=== PATIENT | female | born 1950 | race Asian ===

== ENCOUNTER 2018-09-26 20:08 | Emergency (ER) | payer SELFPAY ==
[2018-09-26] MEDS ORDERED: Heparin 25,000 units/D5W 500 ML ONE (20:31)
[2018-09-26] MEDS ORDERED: Heparin 5,000 UNITS/ML VIAL ONE (20:31)
[2018-09-26] MEDS ORDERED: Aspirin 325 MG TAB ONE (20:31)
[2018-09-26 20:45] LABS: #Basophils 0.1 thou/uL (0.0-0.2); #Monocytes 0.5 thou/uL (0.11-0.59); #Neutrophils 12.5 thou/uL (1.40-6.50); %Basophils 0.6 % (0.0-1.0); %Lymphocytes 7.2 % (21.0-51.0); %Monocytes 3.3 % (0.0-10.0); %Neutrophils 88.9 % (42.0-75.0); Hemoglobin 12.5 g/dL (12.0-16.0); Mean Corpuscular HGB CONC 31.5 g/dL (32.0-36.0); Mean Corpuscular Volume 88.9 fL (78.0-98.0); Mean Platelet Volume 8.2 fL (7.4-10.4); Platelet Count 248 thou/uL (130-400); RBC Distribution Width 11.9 % (11.5-14.5); Red Blood Cell (RBC) Count 4.47 mill/uL (4.20-5.40); White Blood Cell (WBC) Count 14.1 thou/uL (4.8-10.8)
--- NOTE | 2018-09-26 20:49 | RAD ---
RADIOGRAPH CHEST 1 VIEW: Date: 09/26/18 HISTORY: 67-year-old female with ST elevation myocardial infarction. COMPARISON: None. FINDINGS: There is cardiomegaly. There is pulmonary venous engorgement. Prominent interstitial markings are que stionable for mild pulmonary interstitial edema. There is a questionable small left pleural effusion. No consolidation or pneumothorax. IMPRESSION: Evidence for congestive heart failure. JN [][id number] POS: [facility]
[2018-09-26 20:52] LABS: PTT 24.5 SEC (22.9-36.1); Prothrombin Time 12.8 SEC (12.0-14.7)
[2018-09-26 21:03] LABS: ALT (SGPT) 19 U/L (8-55); AST (SGOT) 49 U/L (5-34); Albumin 3.8 g/dL (3.4-4.8); Alkaline Phosphatase 79 U/L (40-150); Anion Gap 27 mmol/L (10-20); BUN (Urea Nitrogen) 27 mg/dL (9.8-20.1); Bilirubin, Total 0.4 mg/dL (0.2-1.2); Calc. Creatinine Clearance 0 mL/min (70-130); Calcium 9.8 mg/dL (7.8-10.44); Carbon Dioxide 17 mmol/L (23-31); Chloride 91 mmol/L (98-107); Estimated GFR-MDRD 40; Globulin 3.9 g/dL (2.4-3.5); Glucose 391 mg/dL (80-115); Potassium 4.2 mmol/L (3.5-5.1); Protein, Total 7.7 g/dL (6.0-8.3); Sodium 131 mmol/L (136-145)
[2018-09-26 21:28] LABS: CKMB 17.4 ng/mL (0-6.6)
== END 2018-09-26 20:53 | disposition short-term general hospital (02) ==
LOC: MADERS 20:08
DX: I21.19 ST elevation (STEMI) myocardial infarction involving other coronary artery of inferior wall (principal); I21.29 ST elevation (STEMI) myocardial infarction involving other sites; E11.65 Type 2 diabetes mellitus with hyperglycemia; E78.5 Hyperlipidemia, unspecified; Z79.84 Long term (current) use of oral hypoglycemic drugs; Z79.899 Other long term (current) drug therapy
CPT/HCPCS: 36415; 36416; 71045; 80053; 82553; 84484; 85025; 85610; 85730; 93005; 96374; J1644

== ENCOUNTER 2019-07-25 19:08 | Emergency (ER) | payer MEDICAID, SELFPAY ==
[2019-07-25] MEDS ORDERED: Nitroglycerin 2% Ointment 1 INCH/1 GM Packet ONE (19:46)
[2019-07-25] MEDS ORDERED: Aspirin Chewable 81 MG TAB ONE (19:46)
[2019-07-25 19:54] LABS: #Basophils 0.1 thou/uL (0.0-0.2); #Eosinphils 0.1 thou/uL (0.0-0.7); #Lymphocytes 1.2 thou/uL (1.20-3.40); #Monocytes 0.5 thou/uL (0.11-0.59); #Neutrophils 9.2 thou/uL (1.40-6.50); %Basophils 0.7 % (0.0-1.0); %Eosinophils 0.5 % (0.0-10.0); %Lymphocytes 10.7 % (21.0-51.0); %Monocytes 4.8 % (0.0-10.0); %Neutrophils 83.4 % (42.0-75.0); Hemoglobin 13.3 g/dL (12.0-16.0); Mean Corpuscular HGB CONC 30.1 g/dL (32.0-36.0); Mean Corpuscular Hemoglobin 27.5 pg (27.0-31.0); Mean Corpuscular Volume 91.3 fL (78.0-98.0); Mean Platelet Volume 7.7 fL (7.4-10.4); Platelet Count 249 thou/uL (130-400); RBC Distribution Width 12.8 % (11.5-14.5); Red Blood Cell (RBC) Count 4.85 mill/uL (4.20-5.40)
[2019-07-25 20:08] LABS: ALT (SGPT) 16 U/L (8-55); AST (SGOT) 16 U/L (5-34); Albumin 3.9 g/dL (3.4-4.8); Alkaline Phosphatase 65 U/L (40-110); Anion Gap 17 mmol/L (10-20); BUN (Urea Nitrogen) 18 mg/dL (9.8-20.1); Bilirubin, Total 0.4 mg/dL (0.2-1.2); Calc. Creatinine Clearance 0 mL/min (70-130); Calcium 9.3 mg/dL (7.8-10.44); Carbon Dioxide 22 mmol/L (23-31); Chloride 103 mmol/L (98-107); Estimated GFR-MDRD 56; Globulin 2.9 g/dL (2.4-3.5); Glucose 230 mg/dL (80-115); Magnesium 1.7 mg/dL (1.6-2.6); Potassium 4.2 mmol/L (3.5-5.1); Protein, Total 6.8 g/dL (6.0-8.3); Sodium 138 mmol/L (136-145)
--- NOTE | 2019-07-25 20:13 | RAD ---
PORTABLE CHEST: 07/25/19 HISTORY: Chest pain. COMPARISON: 10/01/18 exam. Heart size is enlarged. Pulmonary vessels appears mildly engorged. No focal infiltrative process. IMPRESSION: Cardiomegaly with pulmonary vascular engorgement. POS: [facility]
[2019-07-25] MEDS ORDERED: Furosemide 40 MG/4 ML VIAL ONE (21:21)
== END 2019-07-25 22:29 | disposition short-term general hospital (02) ==
LOC: MADERS 19:08
DX: I50.9 Heart failure, unspecified (principal); I25.2 Old myocardial infarction; E11.9 Type 2 diabetes mellitus without complications; E78.5 Hyperlipidemia, unspecified; E78.00 Pure hypercholesterolemia, unspecified; Z79.4 Long term (current) use of insulin; Z79.82 Long term (current) use of aspirin; Z79.899 Other long term (current) drug therapy; I25.10 Atherosclerotic heart disease of native coronary artery without angina pectoris
CPT/HCPCS: 71045; 80053; 83735; 83880; 84484; 85025; 93005; 96374; J1940

== ENCOUNTER 2021-06-19 19:35 | Emergency (ER) | payer MEDICAID, BC ==
[2021-06-19] MEDS ORDERED: Morphine 4 MG/ML VIAL ONE (20:19)
[2021-06-19] MEDS ORDERED: Aspirin Chewable 81 MG TAB ONE (20:20)
[2021-06-19] MEDS ORDERED: diphenhydrAMINE 50 MG/ML VIAL ONE (20:20)
[2021-06-19] MEDS ORDERED: Ondansetron PF 4 MG/2 ML Vial ONE (20:20)
[2021-06-19] MEDS ORDERED: Heparin 5,000 UNITS/ML VIAL ONE (20:33)
[2021-06-19] MEDS ORDERED: Heparin 25,000 units/D5W 500 ML ONE (20:33)
[2021-06-19 20:39] LABS: #Lymphocytes 1.1 thou/uL (1.20-3.40); #Monocytes 0.4 thou/uL (0.11-0.59); #Neutrophils 9.4 thou/uL (1.40-6.50); %Basophils 0.4 % (0.0-1.0); %Eosinophils 0.3 % (0.0-10.0); %Lymphocytes 10.3 % (21.0-51.0); %Monocytes 3.5 % (0.0-10.0); %Neutrophils 85.4 % (42.0-75.0); Hemoglobin 14.8 g/dL (12.0-16.0); Mean Corpuscular HGB CONC 31.8 g/dL (32.0-36.0); Mean Corpuscular Hemoglobin 27.8 pg (27.0-31.0); Mean Corpuscular Volume 87.4 fL (78.0-98.0); Mean Platelet Volume 8.3 fL (7.4-10.4); Platelet Count 239 thou/uL (130-400); RBC Distribution Width 12.1 % (11.5-14.5); Red Blood Cell (RBC) Count 5.33 mill/uL (4.20-5.40)
[2021-06-19 20:48] LABS: INR-International Normal Ratio 0.9; PTT 23.6 sec (22.9-36.1); Prothrombin Time 12.5 sec (12.0-14.7)
[2021-06-19 20:59] LABS: ALT (SGPT) 101 U/L (8-55); AST (SGOT) 178 U/L (5-34); Albumin 4.4 g/dL (3.4-4.8); Alkaline Phosphatase 118 U/L (40-110); Anion Gap 15 mmol/L (10-20); BUN (Urea Nitrogen) 30 mg/dL (9.8-20.1); Bilirubin, Total 1.6 mg/dL (0.2-1.2); CK (CPK) 104 U/L (29-168); Calc. Creatinine Clearance 0 mL/min (70-130); Calcium 10.2 mg/dL (7.8-10.44); Carbon Dioxide 30 mmol/L (23-31); Chloride 100 mmol/L (98-107); Globulin 3.8 g/dL (2.4-3.5); Glucose 353 mg/dL (83-110); Lipase 42 U/L (8-78); Potassium 3.9 mmol/L (3.5-5.1); Protein, Total 8.2 g/dL (5.8-8.1); Sodium 141 mmol/L (136-145)
== END 2021-06-19 21:13 | disposition short-term general hospital (02) ==
LOC: MADERS 19:35
DX: I24.9 Acute ischemic heart disease, unspecified (principal); R00.1 Bradycardia, unspecified; E11.9 Type 2 diabetes mellitus without complications; E78.5 Hyperlipidemia, unspecified; E78.00 Pure hypercholesterolemia, unspecified; I25.2 Old myocardial infarction; Z79.4 Long term (current) use of insulin; Z79.82 Long term (current) use of aspirin; Z79.899 Other long term (current) drug therapy
CPT/HCPCS: 71045; 80053; 82550; 83690; 84484; 85025; 85610; 85730; 93005; 96365; 96375; 96376; J1200; J1644; J2270; J2405

== ENCOUNTER 2021-07-01 11:20 | Inpatient (IN) | payer BC, MEDICAID ==
[2021-07-01 12:47] LABS: Bilirubin Negative (Negative); Blood, Urine Negative (Negative); Clarity Clear (Clear); Glucose, Urine (Dipstick) 500 mg/dL (Negative); Ketone, Urine Negative (Negative); Leukocyte Negative (Negative); Nitrite Negative (Negative); Protein, Urine (Dipstick) Negative (Neg-Trace); Specific Gravity, Urine 1.015 (1.005-1.030); Urobilinogen 0.2 mg/dL (Less than 2)
[2021-07-01 13:59] LABS: #Basophils 0.1 thou/uL (0.0-0.2); #Eosinphils 0.2 thou/uL (0.0-0.7); #Lymphocytes 2.3 thou/uL (1.20-3.40); #Monocytes 0.4 thou/uL (0.11-0.59); #Neutrophils 2.8 thou/uL (1.40-6.50); %Basophils 0.9 % (0.0-1.0); %Eosinophils 2.9 % (0.0-10.0); %Lymphocytes 39.9 % (21.0-51.0); %Monocytes 7.6 % (0.0-10.0); %Neutrophils 48.6 % (42.0-75.0); Hemoglobin 13.8 g/dL (12.0-16.0); Mean Corpuscular HGB CONC 30.9 g/dL (32.0-36.0); Mean Corpuscular Hemoglobin 27.8 pg (27.0-31.0); Mean Platelet Volume 7.2 fL (7.4-10.4); Platelet Count 366 thou/uL (130-400); RBC Distribution Width 13.4 % (11.5-14.5); Red Blood Cell (RBC) Count 4.97 mill/uL (4.20-5.40); White Blood Cell (WBC) Count 5.7 thou/uL (4.8-10.8)
[2021-07-01 14:12] LABS: Anion Gap 16 mmol/L (10-20); BUN (Urea Nitrogen) 38 mg/dL (9.8-20.1); Calc. Creatinine Clearance 0 mL/min (70-130); Calcium 10.5 mg/dL (7.8-10.44); Carbon Dioxide 26 mmol/L (23-31); Chloride 96 mmol/L (98-107); Glucose 288 mg/dL (83-110); Potassium 4.6 mmol/L (3.5-5.1); Sodium 133 mmol/L (136-145)
[2021-07-01] MEDS ORDERED: Azithromycin 500 MG VIAL ONE (14:12)
[2021-07-01] MEDS ORDERED: Sodium Chloride 0.9% 500 ML ONE (14:12)
[2021-07-01] MEDS ORDERED: Sodium Chloride 0.9% 1,000 ML ONE (14:12)
[2021-07-01] MEDS ORDERED: Sodium Chloride 0.9% 100 ML ONE (14:12)
[2021-07-01] MEDS ORDERED: cefTRIAXone\\ROCEPHIN 2 GM VIAL ONE (14:13)
[2021-07-01] MEDS ORDERED: cefTRIAXone\\ROCEPHIN 1 GM VIAL ONE (14:14)
[2021-07-01 17:38] LABS: SARS-CoV-2 NAA Rapid Test Not Detected (NotDetected)
[2021-07-01] MEDS ORDERED: Acetaminophen/Codeine 30-300mg Tablet PO PRN (22:55)
[2021-07-01] MEDS ORDERED: Acetaminophen ER (8hr) 650 MG TAB PO PRN (22:56)
[2021-07-01] MEDS ORDERED: Cyclobenzaprine 10 MG TAB PO PRN (22:57)
[2021-07-01] MEDS ORDERED: Nitroglycerin 0.4 MG TAB (25 Tab Bottle) SL PRN (23:00)
[2021-07-02 03:54] VITALS: BMI 26.9
[2021-07-02] MEDS: Acetaminophen 325 MG TAB PO PRN ×3 (04:38→17:05)
[2021-07-02 05:42] LABS: ALT (SGPT) 43 U/L (8-55); AST (SGOT) 18 U/L (5-34); Albumin 3.8 g/dL (3.4-4.8); Alkaline Phosphatase 141 U/L (40-110); Anion Gap 15 mmol/L (10-20); BUN (Urea Nitrogen) 29 mg/dL (9.8-20.1); Calc. Creatinine Clearance 50 mL/min (70-130); Calcium 9.6 mg/dL (7.8-10.44); Carbon Dioxide 24 mmol/L (23-31); Chloride 103 mmol/L (98-107); Globulin 3.4 g/dL (2.4-3.5); Glucose 306 mg/dL (83-110); Potassium 4.7 mmol/L (3.5-5.1); Protein, Total 7.2 g/dL (5.8-8.1); Sodium 137 mmol/L (136-145)
[2021-07-02] MEDS: HumuLIN 70/30 (300 UNITS/3 ML VIAL) SC SCH ×2 (08:35→17:05)
[2021-07-02] MEDS: Clopidogrel Bisulfate 75 MG TAB PO SCH (08:36)
[2021-07-02] MEDS: Azithromycin 250 MG TAB PO SCH (08:36)
[2021-07-02] MEDS: Lisinopril 5 MG TAB PO SCH (08:36)
[2021-07-02] MEDS: Aspirin Chewable 81 MG TAB PO SCH (08:36)
[2021-07-02] MEDS ORDERED: Dextrose 50% Abboject 50 ML SYRINGE IVP PRN (11:15)
[2021-07-02] MEDS ORDERED: HumaLOG 300 UNITS/3 ML VIAL SC PRN (11:15)
[2021-07-02] MEDS ORDERED: Dextrose 5% in Water 1,000 ML IV PRN (11:15)
[2021-07-02] MEDS: HumaLOG 300 UNITS/3 ML VIAL SC PRN ×2 (12:01→17:06)
[2021-07-02] MEDS: cefTRIAXone\\ROCEPHIN 1 GM in Sodium Chloride 0.9% 100 ML IVPB SCH (14:26)
[2021-07-03] MEDS: Acetaminophen 325 MG TAB PO PRN ×3 (00:31→21:35)
[2021-07-03] MEDS: Aspirin Chewable 81 MG TAB PO SCH (08:50)
[2021-07-03] MEDS: Lisinopril 5 MG TAB PO SCH (08:50)
[2021-07-03] MEDS: Azithromycin 250 MG TAB PO SCH (08:50)
[2021-07-03] MEDS: HumuLIN 70/30 (300 UNITS/3 ML VIAL) SC SCH ×2 (08:50→21:31)
[2021-07-03] MEDS: Clopidogrel Bisulfate 75 MG TAB PO SCH (08:50)
[2021-07-03] MEDS: HumaLOG 300 UNITS/3 ML VIAL SC PRN ×2 (08:54→12:12)
[2021-07-03] MEDS ORDERED: Benzonatate 100 MG CAP PO PRN (12:02)
[2021-07-03] MEDS ORDERED: HumuLIN 70/30 (300 UNITS/3 ML VIAL) SC SCH (12:15)
[2021-07-03] MEDS: cefTRIAXone\\ROCEPHIN 1 GM in Sodium Chloride 0.9% 100 ML IVPB SCH (13:47)
[2021-07-04] MEDS: HumuLIN 70/30 (300 UNITS/3 ML VIAL) SC SCH (09:34)
[2021-07-04] MEDS: Aspirin Chewable 81 MG TAB PO SCH (09:34)
[2021-07-04] MEDS: Azithromycin 250 MG TAB PO SCH (09:34)
[2021-07-04] MEDS: Clopidogrel Bisulfate 75 MG TAB PO SCH (09:34)
[2021-07-04] MEDS: Acetaminophen 325 MG TAB PO PRN (09:42)
[2021-07-04] MEDS ORDERED: Cefdinir 300 MG CAP PO SCH ×2 (11:15→21:00)
[2021-07-04 11:49] VITALS: BP 110/53; TEMP 97.9
[2021-07-04] MEDS: HumaLOG 300 UNITS/3 ML VIAL SC PRN (12:38)
== END 2021-07-04 14:55 | disposition home or self-care (01) | DRG 194 ==
LOC: MADERS 11:20 → MADMS 18:44
PROVIDERS: ADMIT Family Medicine; ATTEND Family Medicine
DX: J18.9 Pneumonia, unspecified organism (principal); E87.1 Hypo-osmolality and hyponatremia; I50.22 Chronic systolic (congestive) heart failure; I42.9 Cardiomyopathy, unspecified; Z20.822 Contact with and (suspected) exposure to COVID-19; E11.9 Type 2 diabetes mellitus without complications; I11.0 Hypertensive heart disease with heart failure; E78.5 Hyperlipidemia, unspecified; M41.9 Scoliosis, unspecified; R00.1 Bradycardia, unspecified; I25.10 Atherosclerotic heart disease of native coronary artery without angina pectoris; M47.817 Spondylosis without myelopathy or radiculopathy, lumbosacral region; N28.9 Disorder of kidney and ureter, unspecified; E78.00 Pure hypercholesterolemia, unspecified; M54.50 Low back pain, unspecified; E83.52 Hypercalcemia; Z79.82 Long term (current) use of aspirin; Z79.02 Long term (current) use of antithrombotics/antiplatelets; Z79.84 Long term (current) use of oral hypoglycemic drugs; Z79.4 Long term (current) use of insulin; Z79.891 Long term (current) use of opiate analgesic; Z79.899 Other long term (current) drug therapy; Z88.8 Allergy status to other drugs, medicaments and biological substances; Z95.5 Presence of coronary angioplasty implant and graft; I25.2 Old myocardial infarction
CPT/HCPCS: 36415; 36416; 71046; 72072; 72100; 80048; 80053; 81003; 83605; 84484; 85025; 87040; 87804; 93005; 96365; 96367; J0456; J0696; J1815; J3490; J7030; J7050; U0002

== ENCOUNTER 2022-10-14 09:38 | Outpatient (CLI) | payer OTHER ==
[2022-10-14 09:57] LABS: #Eosinphils 0.2 thou/uL (0.0-0.7); #Lymphocytes 2.1 thou/uL (1.20-3.40); #Monocytes 0.6 thou/uL (0.11-0.59); #Neutrophils 4.6 thou/uL (1.40-6.50); %Basophils 0.5 % (0.0-1.0); %Eosinophils 2.1 % (0.0-10.0); %Lymphocytes 28.3 % (21.0-51.0); %Monocytes 7.3 % (0.0-10.0); %Neutrophils 61.7 % (42.0-75.0); Mean Corpuscular Hemoglobin 30.8 pg (27.0-31.0); Mean Corpuscular Volume 96.2 fl (78.0-98.0); Mean Platelet Volume 9.5 fL (7.4-10.4); Platelet Count 230 10x3/uL (130-400); RBC Distribution Width 12.4 % (11.5-14.5); Red Blood Cell (RBC) Count 4.23 mill/uL (4.20-5.40); White Blood Cell (WBC) Count 7.5 10x3/uL (4.8-10.8)
[2022-10-14 10:07] LABS: INR-International Normal Ratio 0.9; Prothrombin Time 12.8 sec (12.0-14.7)
[2022-10-14 10:08] LABS: PTT 25.1 sec (22.9-36.1)
[2022-10-14 10:13] LABS: ALT (SGPT) 16 U/L (8-55); AST (SGOT) 15 U/L (5-34); Albumin 4.4 g/dL (3.4-4.8); Alkaline Phosphatase 86 U/L (40-110); Anion Gap 15 mmol/L (10-20); BUN (Urea Nitrogen) 29 mg/dL (9.8-20.1); Bilirubin, Total 0.4 mg/dL (0.2-1.2); Calc. Creatinine Clearance 0 mL/min (70-130); Calcium 9.9 mg/dL (7.8-10.44); Carbon Dioxide 24 mmol/L (23-31); Chloride 105 mmol/L (98-107); Estimated GFR 48; Glucose 120 mg/dL (83-110); Potassium 4.8 mmol/L (3.5-5.1); Protein, Total 7.4 g/dL (5.8-8.1); Sodium 139 mmol/L (136-145)
[2022-10-14 11:27] LABS: Bilirubin Small (Negative); Blood, Urine Negative (Negative); Clarity Clear (Clear); Glucose, Urine (Dipstick) Negative (Negative); Ketone, Urine 15 mg/dL (Negative); Leukocyte Trace (Negative); Nitrite Negative (Negative); Protein, Urine (Dipstick) Trace mg/dL (Neg-Trace); pH, Urine 5.5 (5.0-9.0)
[2022-10-14 11:58] LABS: Specific Gravity, Urine 1.026 (1.002-1.036)
[2022-10-14 11:59] LABS: Bacteria/HPF Rare-Few HPF (None Seen); Mucous/LPF 2+ LPF (<2+); RBC/HPF None Seen HPF (0-3)
[2022-10-14 13:36] LABS: Cardiac Risk 2.9 (Less than 4.5); Cholesterol 129 mg/dl (< 200 Desired); HDL Cholesterol 45 mg/dL (>60 Neg Risk); LDL Cholesterol, Calculated 66 mg/dL; Triglycerides 90 mg/dL (Less than 150)
== END 2022-10-14 09:39 | disposition home or self-care (01) ==
LOC: MADLAB 09:38
PROVIDERS: ATTEND Family Medicine
DX: Z01.818 Encounter for other preprocedural examination (principal); E11.9 Type 2 diabetes mellitus without complications; E78.2 Mixed hyperlipidemia; I51.7 Cardiomegaly
CPT/HCPCS: 36415; 71046; 80053; 80061; 81001; 83036; 85025; 85610; 85730; 87086

== ENCOUNTER 2024-08-01 13:08 | Emergency (ER) | payer OTHER ==
[2024-08-01 13:35] LABS: #Basophils 0.1 thou/uL (0.0-0.2); #Eosinophils 0.2 thou/uL (0.0-0.7); #Lymphocytes 2.6 thou/uL (1.20-3.40); #Monocytes 0.6 thou/uL (0.11-0.59); %Basophils 0.9 % (0.0-1.0); %Eosinophils 3.4 % (0.0-10.0); %Lymphocytes 39.8 % (21.0-51.0); %Monocytes 9.3 % (0.0-10.0); %Neutrophils 46.6 % (42.0-75.0); Hematocrit 38.3 % (36.0-47.0); Hemoglobin 11.8 g/dL (12.0-16.0); Mean Corpuscular HGB CONC 30.9 g/dL (32.0-36.0); Mean Corpuscular Hemoglobin 29.3 pg (27.0-31.0); Mean Corpuscular Volume 94.9 fl (78.0-98.0); Mean Platelet Volume 7.2 fL (7.4-10.4); Platelet Count 245 10x3/uL (130-400); RBC Distribution Width 12.9 % (11.5-14.5); Red Blood Cell (RBC) Count 4.04 mill/uL (4.20-5.40); White Blood Cell (WBC) Count 6.5 10x3/uL (4.8-10.8)
[2024-08-01] MEDS ORDERED: Sodium Chloride 0.9% 500 ML ONE (13:48)
[2024-08-01 13:50] LABS: ALT (SGPT) 12 U/L (Less than 34); AST (SGOT) 17 U/L (11-34); Alkaline Phosphatase 79 U/L (40-110); Anion Gap 17 mmol/L (10-20); BUN (Urea Nitrogen) 32 mg/dL (9.8-20.1); Bilirubin, Total 0.2 mg/dL (0.3-1.2); Calc. Creatinine Clearance 0 mL/min (70-130); Calcium 9.4 mg/dL (7.8-10.44); Carbon Dioxide 20 mmol/L (23-31); Chloride 106 mmol/L (98-107); Estimated GFR 43; Globulin 3.8 g/dL (2.4-3.5); Glucose 123 mg/dL (83-110); Magnesium 2.1 mg/dL (1.6-2.6); Potassium 4.8 mmol/L (3.5-5.1); Protein, Total 7.8 g/dL (5.8-8.1); Sodium 138 mmol/L (136-145)
[2024-08-01 13:53] LABS: Troponin I 0.033 ng/mL (< 0.028)
[2024-08-01 15:53] LABS: Bilirubin Negative (Negative); Blood, Urine Negative (Negative); Clarity Clear (Clear); Glucose, Urine (Dipstick) Negative (Negative); Ketone, Urine Negative (Negative); Leukocyte Negative (Negative); Nitrite Negative (Negative); Protein, Urine (Dipstick) Negative (Neg-Trace); Specific Gravity, Urine 1.015 (1.005-1.030); Urobilinogen 0.2 mg/dL (Less than 2); pH, Urine 6.5 (5.0-9.0)
[2024-08-01 16:07] LABS: Bacteria/HPF Rare-Few HPF (None Seen); CAUTI Indications for Culture Dysuria,urgency,freq; RBC/HPF 0-3 HPF (0-3); Urine Culture Reflex No No; WBC/HPF 0-3 HPF (0-3)
[2024-08-01 16:31] LABS: Anion Gap 13 mmol/L (10-20); BUN (Urea Nitrogen) 32 mg/dL (9.8-20.1); Calc. Creatinine Clearance 0 mL/min (70-130); Calcium 8.9 mg/dL (7.8-10.44); Carbon Dioxide 21 mmol/L (23-31); Chloride 109 mmol/L (98-107); Estimated GFR 52; Potassium 4.5 mmol/L (3.5-5.1); Sodium 138 mmol/L (136-145)
[2024-08-01 16:33] LABS: Glucose 50 mg/dL (83-110)
[2024-08-01 16:36] LABS: Troponin I 0.039 ng/mL (< 0.028)
== END 2024-08-01 17:08 | disposition home or self-care (01) ==
LOC: MADERS 13:08
DX: E11.649 Type 2 diabetes mellitus with hypoglycemia without coma (principal); Z71.1 Person with feared health complaint in whom no diagnosis is made; Z79.4 Long term (current) use of insulin; E78.00 Pure hypercholesterolemia, unspecified; Z79.899 Other long term (current) drug therapy
CPT/HCPCS: 36415; 80053; 81001; 83735; 83880; 84484; 85025; 93005; 99285; J7030

== ENCOUNTER 2025-03-06 09:34 | Outpatient (CLI) | payer OTHER ==
[2025-03-06 10:12] LABS: #Basophils 0.1 thou/uL (0.0-0.2); #Eosinophils 0.1 thou/uL (0.0-0.7); #Lymphocytes 2.4 thou/uL (1.20-3.40); #Monocytes 0.4 thou/uL (0.11-0.59); #Neutrophils 2.8 thou/uL (1.40-6.50); %Basophils 1.0 % (0.0-1.0); %Eosinophils 1.9 % (0.0-10.0); %Lymphocytes 41.0 % (21.0-51.0); %Monocytes 7.6 % (0.0-10.0); %Neutrophils 48.5 % (42.0-75.0); Hematocrit 39.6 % (36.0-47.0); Hemoglobin 13.1 g/dL (12.0-16.0); Mean Corpuscular Hemoglobin 30.7 pg (27.0-31.0); Mean Corpuscular Volume 92.7 fl (78.0-98.0); Platelet Count 225 10x3/uL (130-400); Red Blood Cell (RBC) Count 4.27 mill/uL (4.20-5.40); White Blood Cell (WBC) Count 5.7 10x3/uL (4.8-10.8)
[2025-03-06 10:23] LABS: Anion Gap 16 mmol/L (10-20); BUN (Urea Nitrogen) 33 mg/dL (9.8-20.1); Calc. Creatinine Clearance 0 mL/min (70-130); Carbon Dioxide 23 mmol/L (23-31); Chloride 103 mmol/L (98-107); Potassium 5.1 mmol/L (3.5-5.1); Sodium 137 mmol/L (136-145)
[2025-03-06 10:24] LABS: ALT (SGPT) 16 U/L (Less than 34); AST (SGOT) 21 U/L (11-34); Albumin 4.6 g/dL (3.1-4.5); Alkaline Phosphatase 55 U/L (40-110); Bilirubin, Total 0.5 mg/dL (0.3-1.2); Calcium 9.5 mg/dL (7.8-10.44); Cardiac Risk 2.0 (Less than 4.5); Cholesterol 111 mg/dl (< 200 Desired); Globulin 3.2 g/dL (2.4-3.5); Glucose 180 mg/dL (83-110); HDL Cholesterol 56 mg/dL (>60 Neg Risk); LDL Cholesterol, Calculated 33 mg/dL; Triglycerides 112 mg/dL (Less than 150)
== END 2025-03-06 09:35 | disposition home or self-care (01) ==
LOC: MADLAB 09:34
PROVIDERS: ATTEND Internal Medicine Cardiovascular Disease
DX: I25.10 Atherosclerotic heart disease of native coronary artery without angina pectoris (principal)
CPT/HCPCS: 36415; 80053; 80061; 84443; 85025